=== PATIENT | male | born 1975 ===

== ENCOUNTER 2023-05-01 07:09 | Day surgery (SDC) | payer OTHER, SELFPAY ==
[2023-05-01] VITALS (8 sets, daily range): BP systolic 111–128; BP diastolic 56–83; BMI 31.2
[2023-05-01] MEDS: NORMOSOL-R 1000 IV (10:04)
== END 2023-05-01 13:59 | disposition home or self-care (01) ==
LOC: SDS 07:09
PROVIDERS: ATTENDING PHYSICIAN Surgery
DX: M60.28 Foreign body granuloma of soft tissue, not elsewhere classified, other site (principal); R10.31 Right lower quadrant pain
CPT/HCPCS: 49320; 22999; 88304